=== PATIENT | male | born 1995 | race Caucasian/White ===

== ENCOUNTER 2016-12-26 01:31 | Emergency (ER) | payer BC ==
[~2016-12-26 01:31] MED LIST: AMOXICILLIN PO; AMOXICILLIN875 MG PO; NAPROSYN500 MG PO; NO MEDICATIONS; ZYRTEC PO
== END 2016-12-26 01:48 | disposition home or self-care (01) ==
LOC: SED 01:31
DX: R11.2 Nausea with vomiting, unspecified (principal); R19.7 Diarrhea, unspecified
CPT/HCPCS: 99283